=== PATIENT | male | born 1985 | race African-American/Black ===

== ENCOUNTER 2022-02-02 21:24 | Emergency (ER) | payer OTHER ==
[~2022-02-02] VITALS: Ht 180.3 cm; Wt 66.2 kg
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
[2022-02-02] MEDS ORDERED: DICYCLOMINE HCL INJ 20 MG/2 ML AMPUL IM ONE (22:30)
[2022-02-02] MEDS ORDERED: ONDANSETRON HCL/PF 4 MG/2 ML VIAL ONE (22:31)
[2022-02-02] MEDS: IV NS 0.9% 500 ML BAG IV ONE (22:43)
[2022-02-02] MEDS: DICYCLOMINE HCL INJ 20 MG/2 ML AMPUL IM ONE (22:43)
[2022-02-02] MEDS: ONDANSETRON HCL/PF 4 MG/2 ML VIAL IVP ONE (22:44)
--- NOTE | 2022-02-02 22:44 | NUR ---
DRYING MACHINE TENDER AT BEDSIDE
[2022-02-02 22:58] LABS: BASOPHILS % (AUTO) 0.5 % (0.0-2.0); EOSINOPHILS % (AUTO) 1.6 % (0.0-6.0); HEMATOCRIT 44 % (39-51); HEMOGLOBIN 14.2 g/dL (13.5-17.5); LYMPHOCYTES # (AUTO) 1.1 K/uL (0.8-4.8); LYMPHOCYTES % (AUTO) 12.5 % (20.0-44.0); MEAN CORPUSCULAR HGB CONC 32 g/dl (31.0-36.0); MEAN CORPUSCULAR VOLUME 79 fL (80-96); MONOCYTES # (AUTO) 0.5 K/uL (0.1-1.30); NEUTROPHILS # (AUTO) 7.3 K/uL (1.8-8.9); NEUTROPHILS % (AUTO) 79.4 % (43.0-81.0); PLATELET COUNT (AUTO) 423 K/uL (150-450); RED BLOOD CELL COUNT(AUTO) 5.63 MIL/uL (4.5-6.0); WHITE BLOOD COUNT (AUTO) 9.2 K/uL (4.3-11.0)
[2022-02-02 23:13] LABS: ALBUMIN 3.4 g/dL (3.4-5.0); BILIRUBIN,DIRECT 0.1 mg/dL (0.0-0.2); BILIRUBIN,TOTAL 0.4 mg/dL (0.2-1.0); CALCIUM, SERUM 9.4 mg/dL (8.5-10.1); CREATININE 0.8 mg/dL (0.6-1.3); POTASSIUM 3.6 mmol/L (3.5-5.1); TOTAL PROTEIN, SERUM 8.5 g/dL (6.4-8.2)
--- NOTE | 2022-02-02 23:41 | NUR ---
[facility] CALLED FOR S TRANPORT. ETA 1HR
--- NOTE | 2022-02-03 00:59 | NUR ---
REPORT GIVEN TO GALINA AT THE FACILITY. [facility] AT BED SIDE TO [employer] [facility] THE PT
--- NOTE | 2022-02-03 01:13 | NUR ---
Patient discharged to home in stable condition. Written and verbal after care instructions given. Patient verbalizes understanding of instruction.
[2022-02-03 01:14] VITALS: BP 111/89
== END 2022-02-03 01:14 ==
LOC: ER 21:26
DX: R10.84 Generalized abdominal pain (principal); K40.90 Unilateral inguinal hernia, without obstruction or gangrene, not specified as recurrent; L89.159 Pressure ulcer of sacral region, unspecified stage; M86.68 Other chronic osteomyelitis, other site; I10 Essential (primary) hypertension
CPT/HCPCS: 99284; 74176; 96374; 96361; 85025; 80048; 83690; 80076; 36415; 85730; 96372; J2405; J7040; J0500